=== PATIENT | male | born 1970 | race Caucasian/White ===

== ENCOUNTER 2019-03-14 15:25 | Emergency (ER) | payer OTHER ==
[~2019-03-14] VITALS: Ht 167.6 cm; Wt 81.6 kg
[2019-03-14] MEDS ORDERED: TETANUS,DIPTH,PERTUSS P/F (BOOSTRIX) 0.5 ML VIAL IM ONE (15:45)
[2019-03-14] MEDS ORDERED: LIDOCAINE 1% INJ 20 ML 20 ML VIAL INJ ONE (15:45)
--- NOTE | 2019-03-14 16:04 | Diagnostic Imaging Report ---
INDICATION: Left hand laceration. FINDINGS: Three views of the left hand show no fracture, dislocation, or radiopaque foreign object. IMPRESSION: Negative left hand. Dictated by: Dictated on workstation # [id number]
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
[2019-03-14] MEDS ORDERED: RX-CEPHALEXIN (KEFLEX) 250 MG CAP PPK#4 PO STA (17:17)
[2019-03-14] MEDS ORDERED: CEPH500T PO (17:22)
[2019-03-14] MEDS ORDERED: ACETAMINOPHEN 325 MG TABLET PO ONE (17:30)
[2019-03-14 17:36] VITALS: BP 138/76
== END 2019-03-14 17:36 | disposition home or self-care (01) ==
LOC: ER 15:27
DX: S61.412A Laceration without foreign body of left hand, initial encounter (principal); S80.211A Abrasion, right knee, initial encounter; I10 Essential (primary) hypertension; E11.9 Type 2 diabetes mellitus without complications; Z23 Encounter for immunization; Z86.73 Personal history of transient ischemic attack (TIA), and cerebral infarction without residual deficits; W26.8XXA Contact with other sharp object(s), not elsewhere classified, initial encounter
CPT/HCPCS: 12002; 73130; 90715